=== PATIENT | male | born 1970 | race Caucasian/White ===

== ENCOUNTER 2023-09-05 16:18 | Emergency (ER) | payer MEDICARE, OTHER ==
[~2023-09-05] VITALS: Ht 193 cm; Wt 140.0 kg
[~2023-09-05 16:18] MED LIST: AZIT250T PO; BENZ1TAB93 PO; BUSP5TAB3 PO; CAR2T PO; FINOFIBRATE PO; FLUO20CA39 PO; HAL5T PO; HYDR-3964 PO; TRAZ-91 PO
[2023-09-05 18:12] LABS: BASOPHILS % (AUTO) 0.5 % (0-1); EOSINOPHILS # (AUTO) 0.1 X10'3 (0-0.9); EOSINOPHILS % (AUTO) 1.5 % (0-6); HEMATOCRIT 38.6 % (42.0-52.0); HEMOGLOBIN 13.2 g/dl (14.0-17.9); LYMPHOCYTES # (AUTO) 1.1 X10'3 (1.1-4.8); LYMPHOCYTES % (AUTO) 20.7 % (21-51); MEAN CORPUSCULAR HEMOGLOBIN 30.7 PG (27.0-31.0); MEAN CORPUSCULAR HGB CONC 34.1 g/dL (33.0-36.5); MEAN CORPUSCULAR VOLUME 89.9 FL (78-98); MONOCYTES # (AUTO) 0.3 X10'3 (0-0.9); MONOCYTES % (AUTO) 6.8 % (2-12); NEUTROPHILS # (AUTO) 3.6 X10'3 (1.8-7.7); NEUTROPHILS % (AUTO) 70.5 % (42-75); PLATELET COUNT 249 X10'3 (140-440); RED BLOOD COUNT 4.29 X10'6 (4.70-6.10); RED CELL DISTRIBUTION WIDTH 13.7 % (11.5-14.5); WHITE BLOOD COUNT 5.1 X10'3 (4.5-11.0)
[2023-09-05] MEDS ORDERED: GEMF600T90 PO (18:15)
[2023-09-05] MEDS ORDERED: RISP4TAB94 PO (18:15)
[2023-09-05] MEDS ORDERED: CHOL200059 PO (18:15)
[2023-09-05] MEDS ORDERED: CETI10TA19 PO (18:15)
[2023-09-05] MEDS ORDERED: TEMA30CA5 PO (18:15)
[2023-09-05] MEDS ORDERED: LISI20TA28 PO (18:15)
[2023-09-05] MEDS ORDERED: BACL10TA2 PO (18:15)
[2023-09-05] MEDS ORDERED: GABA-530 PO (18:15)
[2023-09-05] MEDS ORDERED: FERR324T23 PO (18:15)
[2023-09-05] MEDS ORDERED: OMEP20TA43 PO (18:15)
[2023-09-05 18:18] LABS: BILIRUBIN,URINE NEGATIVE (Neg); CLARITY,URINE CLEAR (Clear); COLOR,URINE YELLOW (Yellow); GLUCOSE, URINE NEGATIVE (Neg); KETONES,URINE NEGATIVE (Neg); LEUKOCYTE ESTERASE ,URINE NEGATIVE (Neg); NITRITES, URINE NEGATIVE (Neg); OCCULT BLOOD,URINE NEGATIVE (Neg); PROTEIN,URINE NEGATIVE (Neg); UROBILINOGEN,URINE 0.2 E.U/dL (0.2-1.0)
[2023-09-05] MEDS ORDERED: DOCU-148 PO (18:19)
[2023-09-05 18:20] LABS: UA COLLECTION TYPE VOIDED
[2023-09-05 18:31] LABS: ALBUMIN 4.3 G/DL (3.4-5.0); ANION GAP 1 (8-16); BLOOD UREA NITROGEN 9 MG/DL (7-18); BUN/CREATININE RATIO 11.1 (10.0-20.0); CHLORIDE 101 MMOL/L (99-107); CREATININE 0.81 MG/DL (0.60-1.10); GLUCOSE 100 MG/DL (70-104); POTASSIUM 3.5 MMOL/L (3.5-5.1); SALICYLATE 1.2 MG/DL (4.0-20.0); SODIUM 140 MMOL/L (135-145); THYROID STIMULATING HORMONE 1.53 ulU/ml (0.34-4.50); TOTAL CARBON DIOXIDE 38.2 MMOL/L (24-32); eCRCL 128 ML/MIN; eGFR > 90 ML/MIN
[2023-09-05 18:31] LABS: URINE AMPHETAMINE SCREEN NEGATIVE (Neg); URINE BARBITUATE SCREEN NEGATIVE (Neg); URINE BENZODIAZEPINES SCREEN NEGATIVE (Neg); URINE CANNABINOID SCREEN NEGATIVE (Neg); URINE COCAINE SCREEN NEGATIVE (Neg); URINE METHADONE SCREEN NEGATIVE (Neg); URINE OPIATE SCREEN NEGATIVE (Neg); URINE PHENCYCLIDINE SCREEN NEGATIVE (Neg)
[2023-09-05 18:53] LABS: ACETAMINOPHEN < 2.0 UG/ML (10-30); ETHANOL < 10 MG/DL (<10)
[2023-09-05] MEDS: gemfibrozil 600mg tablet PO SCH (20:09)
[2023-09-05] MEDS: benztropine 1mg tablet PO SCH (20:09)
[2023-09-05] MEDS: gabapentin 100mg capsule PO SCH (20:10)
[2023-09-05] MEDS: risperiDONE 2mg tablet PO SCH (20:10)
[2023-09-05] MEDS: temazepam 15mg capsule PO PRN (20:10)
[2023-09-05] MEDS: cetirizine 10mg tablet PO SCH (20:11)
[2023-09-05] MEDS: baclofen 10mg tablet PO SCH (20:20)
[2023-09-06] MEDS ORDERED: gabapentin 100mg capsule PO SCH
[2023-09-06] MEDS ORDERED: baclofen 10mg tablet PO SCH
[2023-09-06] MEDS: docusate sod 100mg capsule PO SCH (08:25)
[2023-09-06] MEDS: cholecalciferol (vitamin D3) 1,000 unit (25mcg) tablet PO SCH (08:27)
[2023-09-06] MEDS: lisinopril 5mg tablet PO SCH (08:29)
[2023-09-06] MEDS: FLUoxetine 20mg capsule PO SCH (08:29)
[2023-09-06] MEDS: pantoprazole 40mg Tablet.DR PO SCH (08:29)
[2023-09-06] MEDS: ferrous gluconate 324mg tablet PO SCH (08:41)
[2023-09-06] MEDS: doxazosin mesylate 2mg tablet PO SCH (08:41)
[2023-09-06 16:27] LABS: COVID19 ID NOW NEGATIVE (Neg)
[2023-09-06 17:29] VITALS: BP 121/83; PULSE 96; RESP 15; TEMP 97.9; O2SAT 96
== END 2023-09-06 17:45 ==
LOC: ER 16:19
DX: R45.851 Suicidal ideations (principal); F20.9 Schizophrenia, unspecified; Z20.822 Contact with and (suspected) exposure to COVID-19
CPT/HCPCS: 36415; 80048; 80305; 80320; 80329; 81003; 84443; 85025; 87635; 99284